=== PATIENT | female | born 1980 | race Caucasian/White ===

== ENCOUNTER → 2018-02-17 | Outpatient (CLI) | payer OTHER ==
--- NOTE | 2018-02-17 15:50 | US ---
EXAMINATION TYPE: US pelvis complete transvag DATE OF EXAM: 02/17/2018 COMPARISON: NONE CLINICAL HISTORY: N92.0 Excessive and frequent menstruation with reg. TECHNIQUE: Transabdominal sonographic images of the pelvis were acquired. Transvaginal sonographi c images were medically necessary to better assess the following anatomy: uterus and ovaries Date of LMP: January 19, patient has been bleeding since. EXAM MEASUREMENTS: Uterus: 9.4 x 5.1 x 6.7 cm Endometrial Stripe: 1.8 cm Right Ovary: 2.2 x 1.5 x 0.9 cm Left Ovary: 2.6 x 1.7 x 1.7 cm 1. Uterus: Anteverted, wnl, nabothians noted in cervix, hypoechoic ovoid structure left measuring 0. 7 x 0.6 x 1.0cm 2. Endometrium: thickened, heterogeneous 3. Right Ovary: wnl 4. Left Ovary: wnl 5. Bilateral Adnexa: wnl 6. Posterior cul-de-sac: wnl Abdominally there appeared to be a hypoechoic area in uterus, this is not evident transvaginally and is believed to be shadowing or artifact. IMPRESSION: 1. Abnormal endometrial thickness that could relate to endometrial polyp, endometrial mass or endomet rial hyperplasia. History tremor direct visualization recommended for further evaluation. 2. Suspected thickening of the junctional zone that may relate to adenomyosis. Further evaluation wit h MR could be performed. 3. Hypoechoic probable intramural leiomyoma measuring 1.0 cm.
== END | disposition home or self-care (01) ==
LOC: RADUSWWP 14:12
PROVIDERS: ATTEND Family Medicine
DX: R93.8 Abnormal findings on diagnostic imaging of other specified body structures (principal)
CPT/HCPCS: 76830; 76856

== ENCOUNTER 2018-03-17 05:36 | Day surgery (SDC) | payer OTHER ==
[2018-03-14 10:41] VITALS: BMI 30.5
--- NOTE | 2018-03-16 07:57 | P.HPOB ---
History of Present Illness H&P Date: 03/16/18 Chief Complaint: Dysfunctional uterine bleeding, endometrial polyp. This patient is a pleasant 37yr female who presented to me with complaints of about 6 months of dysfunctional bleeding and her PCP (Dr. Baker) ordered an ultrasound that showed a ~1cm endometrial polyp. Patient now presents for further evaluation/treatment with hysterocopy and D&C. Review of Systems Constitutional: Denies chills, Denies fever Genitourinary: Reports as per HPI, Reports abnormal vaginal bleeding Menstruation: Reports menses variable Past Medical History Past Medical History: No Reported History Additional Past Medical History / Comment(s): Menorrhagia History of Any Multi-Drug Resistant Organisms: None Reported Past Surgical History: Orthopedic Surgery Additional Past Surgical History / Comment(s): Tooth Abcess Past Anesthesia/Blood Transfusion Reactions: No Reported Reaction Past Psychological History: No Psychological Hx Reported Smoking Status: Current some day smoker Past Alcohol Use History: None Reported Past Drug Use History: None Reported - Past Family History Mother Family Medical History: No Reported History Medications and Allergies Home Medications Medication Instructions Recorded Confirmed Type Ibuprofen [Motrin] 600 mg PO Q6HR PRN 03/14/18 03/14/18 History Allergies Allergy/AdvReac Type Severity Reaction Status Date / Time hydrocodone bitartrate AdvReac Itching Verified 03/14/18 10:31 [From Vicodin] Exam - OBG Physical Exam Abdomen: bowel sounds normal, no diffuse tenderness, no bruit present, no guarding noted, no hepatomegaly, no splenomegaly, no mass Vulva: both: normal Vagina: normal moisture, no discharge Cervix: no lesion, no discharge Uterus: normal size, normal contour Results Ultrasound shows ~1cm ?endometrial polyp and small fibroid Assessment and Plan Assessment: This is a pleasant 37 yr female with longstanding dysfunctional uterine bleeding and possible endometrial polyp. Plan is hysteroscopy and dilation/ curettage for further evaluation/treatment. I have discussed this surgery with the patient including the risks: infection, bleeding, and possible uterine perforation. All of the patients questions were answered and a written consent obtained. (1) Dysfunctional uterine bleeding Status: Acute Code(s): N93.8 - OTHER SPECIFIED ABNORMAL UTERINE AND VAGINAL BLEEDING SNOMED Code(s): 94202358
[~2018-03-17 05:36] MED LIST: Pre Op ABX Message 1 EACH MISC MISCELLANE ONE
[2018-03-17] MEDS ORDERED: HYDROmorphone 0.5 MG/0.5 ML SYRINGE IVP PRN (05:42)
[2018-03-17] MEDS ORDERED: DEXAMETHASONE SOD PHOSPHATE 10 MG/ML 1 ML VIAL IV ONE (05:42)
[2018-03-17] MEDS ORDERED: ONDANSETRON 4 MG/2 ML VIAL IVP ONE (05:42)
[2018-03-17] MEDS ORDERED: LACTATED RINGERS 1,000 ML IV SCH (05:42)
[2018-03-17 06:37] LABS: Glucose,Whole Blood 98 mg/dL (75-99)
[2018-03-17] MEDS ORDERED: LIDOCAINE 1% 20 ML VIAL (10MG/ML) FOR IV START INTRADERMA ONE (06:37)
[2018-03-17] MEDS ORDERED: PROPOFOL 10 MG/ML 20 ML VIAL IV ONE (07:00)
[2018-03-17] MEDS ORDERED: fentaNYL (PF) 50 MCG/ML 2 ML AMP ONE (07:00)
[2018-03-17] MEDS ORDERED: LIDOCAINE 1% INJ 10MG/ML (20 ML MDV) ONE (07:00)
[2018-03-17] MEDS ORDERED: KETOROLAC 30 MG/ML 1 ML VIAL ONE (07:00)
--- NOTE | 2018-03-17 07:39 | P.OP ---
Date of Procedure: 03/17/18 Preoperative Diagnosis: Menorrhagia and endometrial polyp Postoperative Diagnosis: Same Procedure(s) Performed: #1: Hysteroscopy. #2: Dilation and curettage. Anesthesia: other (LMA) Surgeon: Florin Cheema Urine output (ml): 10 Condition: stable Disposition: PACU Indications for Procedure: Please see dictated H&P for intimate details of this patient's admission. Brief summary this is a pleasant 37-year-old multiparous patient is referred to me for dysfunctional bleeding and an ultrasound that showed a probable 1 cm endometrial polyp. Patient I plan to proceed with hysteroscopy and D&C for further evaluation and treatment. She does understand the surgery and risks including risk of infection, bleeding, possible uterine perforation. All the patient's questions are answered and a written consent is obtained. Operative Findings: This patient had what appeared to be a 1 cm benign appearing endometrial polyp. Endometrial lining was thickened. Description of Procedure: This patient is taken to the operating room where she is laid in the supine position. She subsequently undergoes general anesthesia without incident. With an adequate level of anesthesia she's placed in dorsal lithotomy position. She has a vaginal perineal prep and drape. His emanation anesthesia shows a mid to slightly retroverted uterus. I drain the bladder for approximately 10 mL of clear urine. Weighted speculum placed in the posterior vagina and the anterior lip of the cervix is gravid and Allis clamp. Uterus is then sounded to 9 cm. Gentle dilation is done to allow the hysteroscope into the uterine cavity. Hysteroscopy is performed with saline solution endometrial cavity appears thickened there does appear to be a 1 cm benign appearing endometrial polyp. This done the hysteroscope was removed. The cervix is dilated more to allow a polyp forceps into the uterine cavity. I remove what appears to be in an endometrial polyp. Then using a large curette a gentle but thorough 4 quadrant curettage is done for a generous amount of tissue. Excellent sampling is done. Bleeding subsides. Allis clamp and weighted speculum removed. All counts are correct 3. There are no complications. Patient is then awakened from anesthesia and taken recovery room in satisfactory condition.
[2018-03-17 07:42] VITALS: TEMP 96.8
[2018-03-17 08:20] VITALS: RESP 18
[2018-03-17 08:32] VITALS: BP 129/82; PULSE 51
== END 2018-03-17 09:01 | disposition home or self-care (01) ==
LOC: OR 05:36
PROVIDERS: ATTEND Obstetrics & Gynecology
DX: N84.0 Polyp of corpus uteri (principal); F17.200 Nicotine dependence, unspecified, uncomplicated; Z88.5 Allergy status to narcotic agent
CPT/HCPCS: 81025; 88305; 58558; J1100; J2405; J2001; J3010; J1885; J2704

== ENCOUNTER → 2018-03-25 | Outpatient (CLI) | payer OTHER ==
--- NOTE | 2018-03-25 09:30 | US ---
EXAMINATION TYPE: US mass soft tissue chest/back DATE OF EXAM: 03/25/2018 COMPARISON: NONE CLINICAL HISTORY: D17.9 Benign Lipomatous Neoplasm. Palpable area at midline upper back since patient was 16yrs old. Getting larger now and pending surgical removal. Not painful, no skin discoloration. 3.7 x 4.1 x 2.4cm complex, well circumscribed lesion with no vascularity noted. However, there is het erogeneity in echotexture throughout. Lesion sits right under the surface of the skin line. IMPRESSION: Well-circumscribed 4.1 cm subcutaneous lesion at the site of palpable abnormality appear s as a lipomatous lesion. Although margins are well-defined there is internal heterogeneity in additi on to clinical increase in size per patient history. Therefore surgical excision should be considered .
== END | disposition home or self-care (01) ==
LOC: RADUSWWP 09:02
PROVIDERS: ATTEND Surgery Plastic and Reconstructive Surgery
DX: D17.9 Benign lipomatous neoplasm, unspecified (principal)

== ENCOUNTER 2018-06-03 07:01 | Day surgery (SDC) | payer OTHER ==
[2018-05-27 15:12] VITALS: BMI 31.0
[~2018-06-03 07:01] MED LIST changes: +DEXAMETHASONE SOD PHOSPHATE 10 MG/ML 1 ML VIAL IV ONE; +LACTATED RINGERS 1,000 ML IV SCH; +MIDAZOLAM 2 MG/2 ML VIAL IV PRN; +ONDANSETRON 4 MG/2 ML VIAL IVP ONE; +SCOPOLAMINE 1.5MG/72HR PATCH TRANSDERM ONE; +fentaNYL (PF) 50 MCG/ML 2 ML AMP IV PRN
[2018-06-03] MEDS ORDERED: LIDOCAINE 1% 20 ML VIAL (10MG/ML) FOR IV START INTRADERMA ONE (07:32)
[2018-06-03] MEDS ORDERED: ceFAZolin IN SWFI 2 GM/20 ML SYRINGE IVP STA (07:48)
--- NOTE | 2018-06-03 07:48 | P.GSHP ---
History of Present Illness H&P Date: 06/03/18 CHIEF COMPLAINT: Lipoma of the upper back. HISTORY OF PRESENT ILLNESS: The patient is a 37 year-old female with history of lipoma of the upper back.. She presents today for surgical excision. PAST MEDICAL HISTORY: Please see list. PAST SURGICAL HISTORY: Please see list. MEDICATIONS: Please see list. ALLERGIES: Please see list. SOCIAL HISTORY: No illicit drug use FAMILY HISTORY: No reports of Crohn disease or ulcerative colitis. REVIEW OF ORGAN SYSTEMS: CONSTITUTIONAL: No reports of fevers or chills. GI: Denies any blood in stools or constipation. PHYSICAL EXAM: Patient is a 37-year-old female. Skin: 5 cm palpable large mass of the upper back just distal to the cervical spine. GENERAL: Well developed and in no acute distress. Pleasant. HEENT: No sclera icterus. Extraocular movements grossly intact. Moist buccal mucosa. Head is atraumatic, normocephalic. Hears conversational speech. No nasal drainage. NECK: Supple without lymphadenopathy. No JV distention. CHEST: Non-labored respirations and equal bilateral excursions. CARDIOVASCULAR: Regular rate and rhythm. Palpable 2+ radial pulses. ABDOMEN: Soft. Non-tender. Nondistended. MUSCULOSKELETAL: No clubbing, cyanosis or edema. NEUROLOGIC: No focal or lateralizing signs. PSYCH: Appropriate affect. Alert and oriented to person, place and time. STUDIES: Ultrasound of the neck was reviewed alongside consistent with over 4 cm lipoma within the subcutaneous tissue. ASSESSMENT: 1. Lipoma of the upper back. PLAN: 1. Will proceed of excision of subcutaneous tumors along the back 2. DVT prophylaxis. 3. Antibiotic prophylaxis. 4. Time of recovery, at least one week. Past Medical History Past Medical History: No Reported History Additional Past Medical History / Comment(s): mass to back History of Any Multi-Drug Resistant Organisms: None Reported Past Surgical History: Orthopedic Surgery Additional Past Surgical History / Comment(s): Tooth Abcess,D&C,knee proc at age 12 Past Anesthesia/Blood Transfusion Reactions: No Reported Reaction Smoking Status: Current some day smoker - Past Family History Mother Family Medical History: No Reported History Medications and Allergies Home Medications Medication Instructions Recorded Confirmed Type Loratadine [Claritin] 10 mg PO DAILY 05/27/18 06/03/18 History Allergies Allergy/AdvReac Type Severity Reaction Status Date / Time hydrocodone bitartrate AdvReac Itching Verified 06/03/18 07:21 [From Vicodin]
[2018-06-03] MEDS ORDERED: MIDAZOLAM 2 MG/2 ML VIAL ONE (08:35)
[2018-06-03] MEDS ORDERED: PROPOFOL 10 MG/ML 20 ML VIAL IV ONE (08:35)
[2018-06-03] MEDS ORDERED: SUCCINYLCHOLINE CHLORIDE 100 MG/5 ML SYR IV ONE (08:35)
[2018-06-03] MEDS ORDERED: fentaNYL (PF) 50 MCG/ML 2 ML AMP ONE (08:35)
[2018-06-03] MEDS ORDERED: KETOROLAC 30 MG/ML 1 ML VIAL ONE (08:35)
[2018-06-03] MEDS ORDERED: ONDANSETRON 4 MG/2 ML VIAL ONE (08:35)
[2018-06-03] MEDS ORDERED: BUPIVACAIN-EPI 0.25%-1:200,000 30 ML VIAL SQ ONE ×2 (08:58)
--- NOTE | 2018-06-03 09:59 | P.OP ---
Date of Procedure: 06/03/18 Description of Procedure: SURGEON: RAMIRO FITZGERALD MD [employer] OPERATOR: None. PREOPERATIVE DIAGNOSES: 1. Lipoma upper back tumor, 5 cm POSTOPERATIVE DIAGNOSES: 1. Lipoma upper back midline tumor, 7 x 6 cm, subfascial PROCEDURES PERFORMED: 1. Excision of deep upper back subfascial tumor, 7 x 6 cm 2. Excision of benign skin lesion 7 x 9 cm 3. Complex closure of 9 cm along upper back incision ANESTHESIA: Gen. with local ESTIMATED BLOOD LOSS: 5 mL. SPECIMENS REMOVED: Upper back tumor COMPLICATIONS: None. INDICATIONS: The patient is a 37-year-old female who presents with increasing growth along the upper back just below the spinous process of the cervical spine. Now she presents for surgical intervention.Benefits and risks of surgical intervention were described including bleeding, infection. Informed consent was obtained. DESCRIPTION OR PROCEDURE: Patient was brought into the operating room and placed under general anesthetic. After general induction, she was placed prone. The upper back and neck were prepped and draped in a standard sterile fashion with ChloraPrep. Timeout protocol was confirmed with the surgical team regarding the patient's name, procedure to be performed including preoperative medications. DVT prophylaxis was confirmed. A field block was placed of the back at the area. Indelible marker was placed around the tumor 7 x 6 cm. An incision using #15 blade was made along the marking into the dermis and subcutaneous tissue. Electro-Bovie cautery was used to excise the lesion deep to the fascia in a transverse elliptical fashion. Then skin was also excised to incorporate the entire depth of the lesion including superficial. Undermining was performed along for closure. 0 Vicryl for the deep subcutaneous tissue followed by 3-0 Vicryl was placed in interrupted fashion. 4-0 Monocryl in a running subcuticular fashion was placed along the dermis. The skin was cleansed and Exofin tape with liquid was applied for a four layer closure. The incision was covered with Optifoam dressing. Local anesthetic was placed. At the end of the procedure, needle, sponge, and instrument count was verified correct by industrial service technician. The patient was awoken and taken to the second stage postanesthesia care unit. The patient tolerated the procedure well. FINDINGS: 1. Firm deep subcutaneous tumor extended to the subfascial,7 x 6 x 2.5 x 4 cm Plan - Discharge Summary New Discharge Prescriptions: No Action Loratadine [Claritin] 10 mg PO DAILY Discharge Medication List Loratadine [Claritin] 10 mg PO DAILY 05/27/18 [History]
[2018-06-03 10:07] VITALS: TEMP 97.1
[2018-06-03] MEDS ORDERED: SODIUM CHLORIDE 0.9% 1,000 ML IV ONE (10:12)
[2018-06-03 10:44] VITALS: BP 123/85; PULSE 58
[2018-06-03 10:54] VITALS: RESP 17
== END 2018-06-03 11:03 | disposition home or self-care (01) ==
LOC: OR 07:01
PROVIDERS: ATTEND Surgery Plastic and Reconstructive Surgery
DX: L72.0 Epidermal cyst (principal); D17.1 Benign lipomatous neoplasm of skin and subcutaneous tissue of trunk; L01.02 Bockhart's impetigo; F17.210 Nicotine dependence, cigarettes, uncomplicated; Z79.899 Other long term (current) drug therapy; Z88.5 Allergy status to narcotic agent
CPT/HCPCS: 21933; 13101; 13102; 81025; 88304; 88305; J2250; J1100; J2405; J3010; J1885; J0330; J2704; J0690

== ENCOUNTER → 2020-05-27 | Outpatient (CLI) | payer OTHER ==
--- NOTE | 2020-05-27 14:55 | US ---
EXAMINATION TYPE: US pelvis complete transvag DATE OF EXAM: 05/27/2020 COMPARISON: US CLINICAL HISTORY: N92.1 frequent menstruation with irregular cycle. TECHNIQUE: Transvaginal (TV) and Transabdominal (TA) . Date of LMP: 05/03/2020 EXAM MEASUREMENTS: Uterus: 9.9 x 5.5 x 6.3 cm Endometrial Stripe: 1.9 cm Right Ovary: 4.2 x 3.4 x 3.1 cm Left Ovary: 2.1 x 1.2 x 1.9 cm 1. Uterus: Retroverted small hypoechoic area anterior left uterus measures 0.9 x 0.8 x 0.9 cm, Prese nt previously. Nabothian cysts noted. 2. Endometrium: 1.9 cm, correlate with stage of the menstrual cycle. 3. Right Ovary: mixed area measures 2.0 x 1.1 x 1.6 cm 4. Left Ovary: wnl 5. Bilateral Adnexa: wnl 6. Posterior cul-de-sac: small amount of free fluid IMPRESSION: 1. Small fundal uterine fibroid.
== END | disposition home or self-care (01) ==
LOC: RADUSWWP 14:17
PROVIDERS: ATTEND Obstetrics & Gynecology
DX: D25.9 Leiomyoma of uterus, unspecified (principal)
CPT/HCPCS: 76830; 76856

== ENCOUNTER 2020-06-18 05:58 | Day surgery (SDC) | payer OTHER ==
[2020-06-13 15:23] VITALS: BMI 28.8
--- NOTE | 2020-06-17 07:36 | P.HPOB ---
History of Present Illness H&P Date: 06/17/20 Chief Complaint: Menorrhagia and also requesting permanent sterilization This patient is a pleasant 39-year-old 3 para 3 female who presented to me for evaluation of recurrent menorrhagia and also requesting permanent sterilization. Patient had a D&C done in the past for menorrhagia showed endometrial polyp. Patient's had recurrent menorrhagia is now requesting NovaSure endometrial ablation. Patient also is requesting laparoscopic tubal was cautery for permanent sterilization. She'll have discussed various options for control including male sterilization, hormonal's options and this is the method she has chosen. Past Medical History Past Medical History: GERD/Reflux Additional Past Medical History / Comment(s): mass to back History of Any Multi-Drug Resistant Organisms: None Reported Past Surgical History: Orthopedic Surgery Additional Past Surgical History / Comment(s): SURGERY FOR TOOTH EXTRACTION ,D&C , right knee proc at age 12 Past Anesthesia/Blood Transfusion Reactions: No Reported Reaction Past Psychological History: No Psychological Hx Reported Smoking Status: Former smoker Past Alcohol Use History: None Reported Past Drug Use History: None Reported - Past Family History Mother Family Medical History: No Reported History Medications and Allergies Home Medications Medication Instructions Recorded Confirmed Type Loratadine [Claritin] 10 mg PO DAILY PRN 05/27/18 06/13/20 History Ibuprofen [Motrin] 600 mg PO Q8HR PRN #30 tab 06/03/18 06/13/20 Rx Ascorbic Acid [Vitamin C] 500 mg PO DAILY 06/13/20 06/13/20 History Allergies Allergy/AdvReac Type Severity Reaction Status Date / Time hydrocodone bitartrate AdvReac Itching Verified 06/13/20 15:04 [From Vicodin] Exam - OBG Physical Exam Abdomen: bowel sounds normal, no diffuse tenderness, no bruit present, no guarding noted, no hepatomegaly, no splenomegaly, no mass Vulva: both: normal Vagina: normal moisture, no discharge Cervix: no lesion, no discharge Uterus: normal size, normal contour Results Ultrasound done on May 27 showed a normal-appearing uterus with endometrial lining thickening to 1.9 cm., Otherwise normal Assessment and Plan Assessment: This is a pleasant 39-year-old 3 para 3 female who is presenting for endometrial ablation for menorrhagia and also requesting permanent sterilization. Plan is laparoscopy with bilateral fallopian tube cauterization and hysteroscopy with D&C and NovaSure endometrial ablation. Patient I discussed the surgery in detail and she understands tubal ligation is considered permanent however there is a failure rate of approximately 5 or less per thousand procedures done. She just understands laparoscopy and apparently has risks including risks of infection, bleeding, possible injury bowel, bladder, vessels, and/or other organs. She understands this procedure is considered elective and there are alternatives to this procedure. Patient also understands that if she does become she has a 50% chance of a tubal or an ectopic . In regards to her ablation she understands this surgery has risks of infection, bleeding, possible uterine perforation, and/or thermal injury. All the patient's questions are answered and a written consent is obtained. (1) Menorrhagia Status: Acute Code(s): N92.0 - EXCESSIVE AND FREQUENT MENSTRUATION WITH REGULAR CYCLE SNOMED Code(s): 601356808 (2) Family planning Status: Acute Code(s): Z30.09 - ENCOUNTER FOR OT GENERAL CNSL AND ADVICE ON CONTRACEPTION SNOMED Code(s): 421127633
[~2020-06-18 05:58] MED LIST changes: -DEXAMETHASONE SOD PHOSPHATE 10 MG/ML 1 ML VIAL IV ONE; -LACTATED RINGERS 1,000 ML IV SCH; -MIDAZOLAM 2 MG/2 ML VIAL IV PRN; -ONDANSETRON 4 MG/2 ML VIAL IVP ONE; -SCOPOLAMINE 1.5MG/72HR PATCH TRANSDERM ONE; -fentaNYL (PF) 50 MCG/ML 2 ML AMP IV PRN
[2020-06-18] MEDS ORDERED: ONDANSETRON 4 MG/2 ML VIAL IVP ONE (06:37)
[2020-06-18] MEDS ORDERED: MIDAZOLAM 2 MG/2 ML VIAL IV PRN (06:37)
[2020-06-18] MEDS ORDERED: DEXAMETHASONE SOD PHOSPHATE 10 MG/ML 1 ML VIAL IV ONE (06:37)
[2020-06-18] MEDS ORDERED: HYDROmorphone 0.5 MG/0.5 ML SYRINGE IVP PRN (06:37)
[2020-06-18] MEDS ORDERED: LACTATED RINGERS 1,000 ML IV SCH (06:37)
[2020-06-18] MEDS ORDERED: LIDOCAINE 1% (10MG/ML) FOR IV START INTRADERMA PRN (06:37)
[2020-06-18 06:38] LABS: Glucose,Whole Blood 91 mg/dL (75-99)
[2020-06-18] MEDS ORDERED: ONDANSETRON 4 MG/2 ML VIAL ONE (06:44)
[2020-06-18 06:47] VITALS: RESP 16
[2020-06-18] MEDS ORDERED: MIDAZOLAM 2 MG/2 ML VIAL ONE (06:52)
[2020-06-18] MEDS ORDERED: fentaNYL (PF) 50 MCG/ML 2 ML AMP ONE (06:52)
[2020-06-18] MEDS ORDERED: SUCCINYLCHOLINE CHLORIDE 100 MG/5 ML SYR IV ONE (06:52)
[2020-06-18] MEDS ORDERED: PROPOFOL 10 MG/ML 20 ML VIAL IV ONE (06:52)
[2020-06-18] MEDS ORDERED: LIDOCAINE 1% INJ 10MG/ML (20 ML MDV) ONE (06:52)
[2020-06-18] MEDS ORDERED: KETOROLAC 15 MG/ML 1 ML VIAL ONE (06:52)
[2020-06-18] MEDS ORDERED: BUPIVACAINE (PF) 0.5% 30 ML VIAL SQ ONE ×2 (07:13→07:44)
[2020-06-18 07:59] VITALS: TEMP 96.8
--- NOTE | 2020-06-18 08:08 | P.OP ---
Date of Procedure: 06/18/20 Preoperative Diagnosis: #1: Menorrhagia. #2: Multi parity desires permanent sterilization Postoperative Diagnosis: Same Procedure(s) Performed: #1: Laparoscopic bilateral fallopian tube cauterization. #2: Hysteroscopy. #3: Dilation and curettage. #4: NovaSure endometrial ablation Anesthesia: DEMETRIO Surgeon: Florin Cheema Estimated Blood Loss (ml): 25 Urine output (ml): 25 Pathology: other (Uterine curettings) Condition: stable Disposition: PACU Indications for Procedure: Please see dictated H&P for intimate details of this patient's admission. Brief summary this is a pleasant 39-year-old multiparous patient who is requesting NovaSure endometrial ablation for menorrhagia and also requesting permanent sterilization. Patient I have discussed tubal ligation in detail and she understands it is permanent however there is a failure rate of 5 or less per thousand procedures done. She understands that laparoscopy and apparently has risks including risks of infection, bleeding, possible injury bowel, bladder, vessels, and/or other organs. She also understands that a endometrial ablation has risks of infection, bleeding, possible uterine perforation, and/or thermal injury. All the patient's questions are answered written consent is obtained Operative Findings: This patient had a normal-appearing pelvis. The uterine cavity did not show any evidence of polyps fibroids or other growths. Description of Procedure: This patient is taken to the operating room where she is laid in the supine position. She subsequently undergoes general endotracheal anesthesia without incident. With an adequate level of anesthesia she is placed in dorsal lithotomy position. She has a vaginal perineal abdominal prep and drape. First good on below placed a speculum into the vagina and grabbed the anterior lip of the cervix with an Allis clamp. A large acorn cannula was then gently placed in the endocervix and attached to the Allis clamp. The bladder is then drained at this time for 25 mL of clear urine and this is attached to the Allis clamp. I then changed gloves and go up above. Approximately 1 cm infraumbilical incision is then made with scalpel. Through this a 10 mm bladed lists optical trochars placed directly into the peritoneal cavity. With peritoneal placement confirmed, a pneumoperitoneum was then created to 12 mm of carbon dioxide gas. Proximally 2 finger breaths above the symphysis pubis a 5 mm incision is made and a 5 mm bladed lists trochars placed under direct visualization. One probe was then placed in the lower trocar site the uterus is visualized. Uterus tubes and ovaries all appear normal. The upper abdomen grossly appears normal. Using bipolar cautery then grasped the left fallopian tube approximately 4 cm from the cornual insertion and a 2-3 cm segment of the tube was completely cauterized as demarcated by the volt meter similar technique is done on the right side with similar results. With this done final inspection is done and excellent hemo stasis is noted. Lower trochars removed. Pneumoperitoneum was reduced and the upper trochars removed. The incisions are then closed using a 4-0 Vicryl interrupted fashion. Steri-Strips and sterile dressing is applied. I infiltrate both incisions with half percent Marcaine for postoperative pain control. Then good on below placed a weighted speculum posterior vagina. The uterus is sounded to 9 cm. Using a hysteroscope with saline solution I visualize the endometrial cavity and does not appear to have any polyps or fibroids. Cavity length was measured at 6.5 cm. I then removed the hyst eroscope gently dilate the cervix to allow a small curette in the uterine cavity a gentle but thorough 4 quadrant curettage is then done. With this completed the NovaSure device is then opened and set at a length of 6.5 cm. It is seated in place and opens up to a width of 4.6 cm. I do have to seal the cervix around the NovaSure device because it is very multiparous however it passes the cavity integrity test is then enabled at 164 W settings for 44 seconds. The NovaSure device is then removed. Hysteroscopy is performed and the endometrial cavity appears to be ablated up to the endocervix. With this done there is minimal bleeding procedure is ended. The Allis clamp and weighted speculum removed. All counts are correct 3. There are no complications. Patient is awakened from anesthesia and taken recovery room in satisfactory condition.
[2020-06-18] MEDS ORDERED: LACTATED RINGERS 1,000 ML IV ONE (08:32)
[2020-06-18] MEDS ORDERED: Acetaminophen-Codeine 300-30mg TAB ONE (09:01)
[2020-06-18 09:04] VITALS: BP 130/77; PULSE 55
[2020-06-18] MEDS ORDERED: Acetaminophen-Codeine 300-30mg TAB PO ONE (09:04)
== END 2020-06-18 09:38 | disposition home or self-care (01) ==
LOC: OR 05:58
PROVIDERS: ATTEND Obstetrics & Gynecology
DX: N92.0 Excessive and frequent menstruation with regular cycle (principal); Z30.2 Encounter for sterilization; K21.9 Gastro-esophageal reflux disease without esophagitis; Z88.5 Allergy status to narcotic agent; Z98.890 Other specified postprocedural states; Z87.891 Personal history of nicotine dependence; Z79.899 Other long term (current) drug therapy
CPT/HCPCS: 81025; 88305; 58563; 58670; J2250; J1100; J2405; J2001; J3010; J1885; J0330; J2704; J1170